=== PATIENT | male | born 1960 | race Caucasian/White ===

== ENCOUNTER 2020-06-09 19:19 | Observation (INO) ==
--- NOTE | 2020-06-09 20:38 | XRay Report ---
XR chest 1V portable CLINICAL HISTORY: Atypical chest pain COMPARISON STUDY: 06/03/2020 FINDINGS: The cardiac and mediastinal contours are normal. There is no evidence of focal pulmonary co nsolidation. There is no evidence of failure. No pleural effusions are visualized.[ IMPRESSION: No active disease in the chest. ACT 112: Negative or not required by law. Electronically signed by: Kole Vicente M.D. 06/09/2020 8:37 PM
--- NOTE | 2020-06-09 20:55 | Emergency Department Note ---
Impression & Plan Chest pain, Elevated troponin I level ED Provider Note NAME: MIRIAN JAMISON AGE: 59 SEX: M : 1960 ARRIVES VIA: Walk-In INFORMANT: Patient, ED PROVIDER(S): Jose Angel Jacobo DO CHIEF COMPLAINT: Chest pain HPI: The patient is a 59-year-old male who presented to the emergency department for an evaluation of chest pain. The patient describes left-sided anterior chest pain that goes to the right side which had been ongoing for the last 2 weeks. The patient has had intermittent episodes where the pain is worse but he states for at least the last 24 hours has had constant ongoing pain. He describes it anteriorly with radiation to the right and left shoulders. He also describes worsening pain with movement deep breathing as well as exertion. He was seen in our facility originally and followed up with cardiology. Cardiology evaluated the patient and feels that this could be related to GI upset and he was started on a proton pump inhibitor. Symptoms are not improving and seem to be worsening. He called his family doctor and was referred to the emergency department. ROS: See above HPI for pertinent positives & negatives. A total of 10 systems reviewed and were otherwise negative. PAST MEDICAL HISTORY: See Below PAST SURGICAL HISTORY: See Below FAMILY HISTORY: See Below SOCIAL HISTORY: See Below HOME MEDICATIONS: See Below ALLERGIES: See Below VITALS: See Below PHYSICAL EXAMINATION: GENERAL: Patient is awake alert in no acute distress patient is resting comfortably and showing no signs of anxiety EYES: The conjunctivae are clear. The pupils are round and reactive. EARS, NOSE, MOUTH AND THROAT: The nose is without any evidence of any deformity. NECK: The neck is nontender and supple. RESPIRATORY: Normal respiratory effort is noted there is no evidence of wheezing rhonchi or rales CARDIOVASCULAR: Regular rate and rhythm noted there no murmurs rubs or gallops normal S1 normal S2. GASTROINTESTINAL: The abdomen is soft. Abdomen is nontender. MUSCULOSKELETAL/EXTREMITIES: There is no evidence of gross deformity full range of motion is noted in the hips and shoulders. SKIN: There is no obvious evidence of any rash. There are no petechiae, pallor or cyanosis noted. NEUROLOGIC: Patient is awake alert and oriented x3. MEDICAL DECISION MAKING: The patient is a 59-year-old male who presented to the emergency department for an evaluation of chest pain. The patient does have risk factors for coronary artery disease including diabetes and hypertension. The patient's initial EKG showed no significant change compared to previous but did show some nonspecific ST segment abnormalities. The patient was seen previously with similar complaints. At that time he was following up with cardiology. On follow-up with cardiology they did not feel that his pain was cardiac in nature. The patient started having worsening pain and presented to the emergency department with his significant other for reevaluation. The patient was found to have an EKG that looks similar to previous but did have a mild elevation in his troponi n. He was treated with aspirin and pain medication. On subsequent reevaluation he was feeling much better. Given the patient's findings and comorbidities I [facility] have agreed to evaluate the patient in the emergency department for further management and disposition. Triage Nursing notes reviewed. Prior medical records reviewed Vital Signs: reviewed and remarkable for no significant abnormalities Differential diagnosis: Cardiac ischemia, aortic dissection, pulmonary embolism, pneumothorax, pneumonia, pericarditis, myocarditis, esophageal rupture, GERD, cholecystitis, pancreatitis, musculoskeletal, as well as other pathologies. ER treatment provided: See below Diagnostics interpreted by me: ECG: EKG was obtained in the emergency department. My interpretation is normal sinus rhythm at 82 bpm. There is no ectopy. Inferior Q waves were noted. This was compared to a tracing from June 032019. No significant changes were noted. Cardiac Monitoring: An order was placed for continuous cardiac monitoring. The monitor shows a rate of 75 bpm with sinus rhythm. Laboratory studies: As stated above and show below. Imaging studies: See below Consultation(s): I discussed this case with Dr. Delvalle who is [facility]. Past Med/Surg History Medical History (Updated 06/09/20 @ 23:38 by Jose Angel Jacobo DO) Diabetes Social History Smoking Status: Former smoker Preferred Language: Trinidadian Feels Safe at Home: Yes Allergies Allergies Allergy/AdvReac Type Severity Reaction Status Date / Time codeine Allergy Intermediate Nausea/Vomi Verified 06/08/20 14:27 ting Penicillins Allergy Intermediate Swelling Verified 06/08/20 14:27 Home Meds Home Medications Medication Instructions Recorded Confirmed atorvastatin 10 mg PO HS 08/10/19 06/09/20 ertugliflozin [Steglatro] 15 mg PO QAM 08/10/19 06/09/20 fluticasone propion-salmeterol 1 puff INHALATION Q12H 08/10/19 06/09/20 gabapentin 100 mg PO HS 08/10/19 06/09/20 liraglutide [Victoza 3-Santana] 1.8 mg SUBCUT DAILY 08/10/19 06/09/20 lisinopril-hydrochlorothiazide 1 tab PO DAILY 08/10/19 06/09/20 metformin 1,000 mg PO BID 08/10/19 06/09/20 modafinil 200 mg PO BID 08/10/19 06/09/20 potassium chloride [Klor-Con M20] 20 meq PO DAILY 08/10/19 06/09/20 Previous Rx's Medication Instructions Recorded lansoprazole 30 mg capsule,delayed 30 mg PO DAILY #30 cap 06/08/20 release Results & Data (ED) Vital Signs Vital Signs - 24 hr 06/09/20 19:29 06/09/20 20:35 06/09/20 21:15 Temperature 37.2 C Temperature Source Oral Pulse Rate 86 80 Pulse Rate from SpO2 Sensor 79 Respiratory Rate 20 18 Respiratory Effort / Characteristics Non-Labored Spontaneous Respiratory Depth Normal Blood Pressure 146/78 H 125/83 Blood Pressure Mean 100 105 Pulse Oximetry 94 94 Oxygen Delivery Method Room Air Room Air Sepsis New/Unexplained Change in Mental Status N/A Sepsis Action Taken by Nursing No Action Required 06/09/20 21:26 06/09/20 21:30 06/09/20 21:45 Temperature Temperature Source Pulse Rate 80 85 78 Pulse Rate from SpO2 Sensor 81 Respiratory Rate 15 17 13 Respiratory Effort / Characteristics Respiratory Depth Blood Pressure 139/82 127/75 Blood Pressure Mean 112 100 Pulse Oximetry 94 Oxygen Delivery Method Sepsis New/Unexplained Change in Mental Status Sepsis Action Taken by Nursing 06/09/20 22:00 06/09/20 22:15 06/09/20 22:30 Temperature Temperature Source Pulse Rate 79 81 76 Pulse Rate from SpO2 Sensor 82 76 Respiratory Rate 14 20 16 Respiratory Effort / Characteristics Respiratory Depth Blood Pressure 138/72 146/76 H 118/70 Blood Pressure Mean 97 98 93 Pulse Oximetry 95 94 Oxygen Delivery Method Sepsis New/Unexplained Change in Mental Status Sepsis Action Taken by Fdc Medications Current Medication List: was personally reviewed by mo Laboratory Data Attestation: I reviewed the patient's lab results. Result diagrams: 06/09/20 20:55 06/09/20 20:55 Lab Results 06/09/20 06/09/20 06/09/20 Range/Units 20:55 20:55 20:55 WBC 9.14 (4.8-10.8) K/uL RBC 5.27 (4.7-6.1) M/uL Hgb 15.1 (14.0-18.0) g/dL Hct 46.2 (42-52) % MCV 87.7 (80-100) fL MCH 28.7 (25-34) pg MCHC 32.7 (32-36) g/dL RDW Std Deviation 43.9 (36.4-46.3) fL RDW Coeff of Donna 13.7 (11.5-14.5) % Plt Count 201 (130-400) K/uL MPV 10.6 H (7.4-10.4) fL Immature Gran % (Auto) 0.2 % Neut % (Auto) 63.9 % Lymph % (Auto) 20.6 % Esmeralda % (Auto) 13.1 % Eos % (Auto) 2.0 % Baso % (Auto) 0.2 % Neut # (Auto) 5.84 (1.4-6.5) K/uL Lymph # (Auto) 1.88 (1.2-3.4) K/uL Esmeralda # (Auto) 1.20 H (0.11-0.59) K/uL Eos # (Auto) 0.18 (0-0.5) K/uL Baso # (Auto) 0.02 (0-0.2) K/uL Immature Gran # (Auto) 0.02 (0.00-0.02) K/uL PT 10.6 (9.0-12.0) Seconds INR 1.0 (0.9-1.1) APTT 26.0 (21.0-31.0) Seconds PTT Ratio 0.9 D-Dimer 230 (0-500) ug/L FEU Sodium 141 (136-145) mmol/L Potassium 3.9 (3.5-5.1) mmol/L Chloride 108 H (98-107) mmol/L Carbon Dioxide 26 (21-32) mmol/L Anion Gap 7.0 (3-11) BUN 18 (7-18) mg/dl Creatinine 0.93 (0.6-1.4) mg/dl Est Cr Clr Drug Dosing 97.5 ml/min Est GFR ( Amer) 103.8 Est GFR (Non-Af Amer) 89.5 BUN/Creatinine Ratio 18.8 (10-20) Glucose 142 H (70-99) mg/dl Calcium 9.2 (8.5-10.1) mg/dl Total Bilirubin 0.1 L (0.2-1) mg/dl AST 21 (15-37) U/L ALT 45 (12-78) U/L Alkaline Phosphatase 53 (45-117) U/L Troponin I 0.060 H* (0-0.045) ng/ml Total Protein 7.2 (6.4-8.2) gm/dl Albumin 3.8 (3.4-5.0) gm/dl Globulin 3.4 (2.5-4.0) gm/dl Albumin/Globulin Ratio 1.1 (0.9-2) Lipase 254 (73-393) U/L Administered Medications Fentanyl Citrate (Fentanyl Citrate 100 Mcg/2 Ml Vial) 50 mcg IV Q15M PRN PRN Reason: Pain Stop: 06/23/20 20:57 Last Admin: 06/09/20 21:28 Dose: 50 mcg Documented by: [id number] Nitroglycerin (Nitroglycerin 2% Ointment 30gm Tube) 1 inch EXT Q6H [facility] Stop: 07/10/20 00:00 Last Admin: 06/09/20 23:14 Dose: 1 inch Documented by: [id number] Discontinued Medications Aspirin (Aspirin Chew 324 Mg) 324 mg PO NOW STA Stop: 06/09/20 20:59 Last Admin: 06/09/20 21:26 Dose: 324 mg Documented by: [id number] Nitroglycerin (Nitroglycerin 2% Ointment 30gm Tube) Confirm Administered Dose 18 inch .ROUTE .STK-MED ONE Stop: 06/09/20 23:14 Last Admin: 06/09/20 23:14 Dose: Not Given Documented by: [id number] Ondansetron HCl (Ondansetron Inj 2 Mg/Ml 2 Ml Vial) 4 mg IV NOW STA Stop: 06/09/20 20:59 Last Admin: 06/09/20 21:26 Dose: 4 mg Documented by: [id number] Imaging Data Radiologist's Impression: Patient: MIRIAN JAMISON EAdmit Date: 06/09/20#: [id number]: [id number] ID:[id number]: Date: 1960[facility] Zip: [place] [id number]: 59Location: EDSex: MRoom/Bed:Att Phy:Diagnosis: chest painPri Phy: Juan Mei III., CRNPService Date: 06/09/20Fa Phy:Interpreting Phy: Kole Vicente MDAdmit Phy: Ordering Phy: Jose Angel Jacobo DO cc: ~ XR chest 1V portable CLINICAL HISTORY: Atypical chest pain COMPARISON STUDY: 06/03/2020 FINDINGS: The cardiac and mediastinal contours are normal. There is no evidence of focal pulmonary consolidation. There is no evidence of failure. No pleural effusions are visualized.[ IMPRESSION: No active disease in the chest. ACT 112: Negative or not required by law. Electronically signed by: Kole Vicente M.D. 06/09/2020 8:37 PM Dictated: 06/09/202036Transcribed: 06/09/202036 Blood Pressure Blood Pressure Findings: Normal blood pressure Discharge Plan Visit Data Chief Complaint: Chest Pain Stated Complaint: chest pain ED Provider: Jose Angel Jacobo Discharge Problem: Chest pain, Elevated troponin I level Patient Disposition: Being Evaluated by Hospitalist Condition: Good Forms Stand Alone Forms: My [facility] Prescriptions Prescriptions: No Action lansoprazole 30 mg capsule,delayed release(DR/EC) 30 mg PO DAILY Qty: 30 RF: 2 atorvastatin 10 mg tablet 10 mg PO HS RF: 0 potassium chloride [Klor-Con M20] 20 mEq tablet,ER particles/crystals 20 meq PO DAILY RF: 0 modafinil 200 mg tablet 200 mg PO BID RF: 0 gabapentin 100 mg capsule 100 mg PO HS RF: 0 lisinopril-hydrochlorothiazide 10-12.5 mg tablet 1 tab PO DAILY RF: 0 metformin 500 mg tablet extended release 24 hr 1,000 mg PO BID RF: 0 Victoza 3-Santana 0.6 mg/0.1 mL (18 mg/3 mL) pen injector 1.8 mg SUBCUT DAILY RF: 0 fluticasone propion-salmeterol 113-14 mcg/actuation aerosol powdr breath activated 1 puff INHALATION Q12H RF: 0 Steglatro 15 mg tablet 15 mg PO QAM RF: 0 Referrals Referrals: Juan Mei III, CRNP [Primary Care Provider] -
[2020-06-09] MEDS ORDERED: ASPIRIN CHEW 324 MG PO STA (20:58)
[2020-06-09] MEDS ORDERED: fentaNYL citrate 100 MCG/2 ML VIAL IV PRN (20:58)
[2020-06-09] MEDS ORDERED: ONDANSETRON INJ 2 MG/ML 2 ML VIAL IV STA (20:58)
[2020-06-09 21:10] LABS: Basophils # (auto) 0.02 K/uL (0-0.2); Basophils % (auto) 0.2 %; Eosinophils # (auto) 0.18 K/uL (0-0.5); Hematocrit (blood only) 46.2 % (42-52); Hemoglobin 15.1 g/dL (14.0-18.0); Immature Granulocytes # (auto) 0.02 K/uL (0.00-0.02); Immature Granulocytes % (auto) 0.2 %; Lymphocytes # (auto) 1.88 K/uL (1.2-3.4); Lymphocytes % (auto) 20.6 %; Mean Corpuscular Hemoglobin 28.7 pg (25-34); Mean Corpuscular Hgb Conc 32.7 g/dL (32-36); Mean Corpuscular Volume 87.7 fL (80-100); Mean Platelet Volume 10.6 fL (7.4-10.4); Monocytes % (auto) 13.1 %; Neutrophils # (auto) 5.84 K/uL (1.4-6.5); Neutrophils % (auto) 63.9 %; Platelet Count 201 K/uL (130-400); RDW Coefficient of Variation 13.7 % (11.5-14.5); RDW Standard Deviation 43.9 fL (36.4-46.3); Red Blood Count 5.27 M/uL (4.7-6.1); White Blood Count 9.14 K/uL (4.8-10.8)
[2020-06-09 21:27] LABS: Albumin Level 3.8 gm/dl (3.4-5.0); BUN Creatinine Ratio 18.8 (10-20); Calcium 9.2 mg/dl (8.5-10.1); Creatinine Clr Calc Pharmacy 97.5 ml/min; Est GFR (African American) 103.8; Est GFR (Non-African American) 89.5; Potassium 3.9 mmol/L (3.5-5.1)
[2020-06-09 21:31] LABS: D Dimer 230 ug/L FEU (0-500); Partial Thromboplastin Ratio 0.9; Prothrombin Time 10.6 Seconds (9.0-12.0)
[2020-06-09 21:41] LABS: Albumin Globulin Ratio 1.1 (0.9-2); Bilirubin,Total 0.1 mg/dl (0.2-1); Globulin 3.4 gm/dl (2.5-4.0); Total Protein 7.2 gm/dl (6.4-8.2); Troponin I 0.06 ng/ml (0-0.045)
[2020-06-09] MEDS ORDERED: NITROGLYCERIN 2% OINTMENT 30GM TUBE ONE (23:13)
[2020-06-09] MEDS: NITROGLYCERIN 2% OINTMENT 30GM TUBE EXT SCH (23:14)
[2020-06-10] MEDS ORDERED: GLUCAGON FOR INJ 1 MG VIAL SQ PRN (00:29)
[2020-06-10] MEDS ORDERED: GLUCOSE 10 TABS/TUBE PO PRN (00:29)
[2020-06-10] MEDS ORDERED: GLUCOSE 40% GEL 15 GM TUBE PO PRN (00:29)
[2020-06-10] MEDS ORDERED: DEXTROSE 50% 50 ML SYRINGE IV PRN (00:29)
[2020-06-10] MEDS ORDERED: NITROGLYCERIN SL 0.4 MG/TAB TAB SL PRN (00:29)
[2020-06-10] MEDS ORDERED: NSS + 20MEQ KCL 20 MEQ/1,000 ML BAG IV SCH (00:29)
[2020-06-10] MEDS ORDERED: ONDANSETRON INJ 2 MG/ML 2 ML VIAL IV PRN (00:29)
[2020-06-10] MEDS ORDERED: CARBOHYDRATES FOR HYPOGLYCEMIA PO PRN (00:29)
[2020-06-10] MEDS ORDERED: INFLUENZA ADMINISTRATION CHARGE ONE (00:42)
[2020-06-10] MEDS ORDERED: INFLUENZA VIRUS QUAD VACCINE 0.5 ML SYR IM ONE (00:42)
[2020-06-10] MEDS: ACETAMINOPHEN 325 MG TAB PO PRN ×2 (04:50→15:23)
[2020-06-10] MEDS ORDERED: fentaNYL citrate 100 MCG/2 ML VIAL IV PRN (05:10)
[2020-06-10] MEDS ORDERED: fentaNYL citrate 100 MCG/2 ML VIAL ONE ×2 (05:15→13:06)
[2020-06-10] MEDS: NITROGLYCERIN 2% OINTMENT 30GM TUBE EXT SCH ×2 (05:23→11:20)
--- NOTE | 2020-06-10 05:49 | History & Physical Report ---
Date of Service June 10, 2020 Assessment & Plan (1) Non-STEMI (non-ST elevated myocardial infarction): Non-STEMI/elevated troponin I/CAD/hypertension- The patient will be admitted to telemetry for serial cardiac enzymes, serial EKG's, cardiac rhythm monitoring and a 2-D echocardiogram with Dopplers. Place on aspirin 81 mg daily Nitropaste 1 inch to the anterior chest wall every 6 hours Continue lisinopril/HCTZ 10/12.5 daily Continue potassium chloride 20 mEq daily Consult his fire lieutenant Dr. Son Present on Admission?: Yes (2) CAD (coronary artery disease), teller coronary artery: EKG with old inferior wall IN Present on Admission?: Yes (3) Hypertension: See above Present on Admission?: Yes (4) Elevated troponin I level: Troponin 0.06 upon admission Present on Admission?: Yes (5) Diabetes mellitus: Hold Metformin, ertugliflozin and liraglutide. Placed on Accu-Cheks before meals and at bedtime with NovoLog coverage per scale Present on Admission?: Yes (6) Hyperlipidemia LDL goal <70: Increase atorvastatin from 10 to 40 mg at bedtime. Check a fasting lipid panel Present on Admission?: Yes (7) Excessive daytime sleepiness: Hold modafinil Present on Admission?: Yes (8) GERD (gastroesophageal reflux disease): Continue lansoprazole 30 mg daily or pantoprazole 40 mg daily Present on Admission?: Yes (9) COPD (chronic obstructive pulmonary disease): Continue fluticasone propionate/salmeterol 1 elation every 12 hours. Present on Admission?: Yes Admission and Anticipated Discharge Date Admission Date: June 09, 2020 History of Present Illness Chief Complaint: The patient presents to the emergency department with worsening substernal chest pain and shortness of breath. Primary Care Provider: Juan Mei III, CHARITO The patient is 59-year-old male with a past medical history including hypertension, hyperlipidemia, diabetes mellitus, COPD, GERD, and daytime excessive sleepiness and fatigue. He was recently started on Prilosec in the outpatient setting for presumptive GERD, however, his symptoms were that significant that he presented to the ED for assessment tonight. In the emergency department, work-up included the following: Troponin 0 0.06, glucose 142, normal chest x-ray, EKG with normal sinus rhythm at 80 and old inferior wall IN. In the emergency department, the patient received aspirin 324 mg, Zo cleo 4 mg IV and fentanyl 50 mcg IV. Allergies Allergy/AdvReac Type Severity Reaction Status Date / Time codeine Allergy Intermediate Nausea/Vomi Verified 06/08/20 14:27 ting Penicillins Allergy Intermediate Swelling Verified 06/08/20 14:27 Home Medications Home Medications Medication Instructions Recorded Confirmed Type atorvastatin 10 mg PO HS 08/10/19 06/09/20 History ertugliflozin [Steglatro] 15 mg PO QAM 08/10/19 06/09/20 History fluticasone propion-salmeterol 1 puff INHALATION Q12H 08/10/19 06/09/20 History gabapentin 100 mg PO HS 08/10/19 06/09/20 History liraglutide [Victoza 3-Santana] 1.8 mg SUBCUT DAILY 08/10/19 06/09/20 History lisinopril-hydrochlorothiazide 1 tab PO DAILY 08/10/19 06/09/20 History metformin 1,000 mg PO BID 08/10/19 06/09/20 History modafinil 200 mg PO BID 08/10/19 06/09/20 History potassium chloride [Klor-Con M20] 20 meq PO DAILY 08/10/19 06/09/20 History lansoprazole 30 mg capsule,delayed 30 mg PO DAILY #30 cap 06/08/20 06/09/20 Rx release Past Med/Surg History Medical History (Updated 06/10/20 @ 05:44 by Lalit Simpson MD) CAD (coronary artery disease), teller coronary artery COPD (chronic obstructive pulmonary disease) Diabetes mellitus Excessive daytime sleepiness GERD (gastroesophageal reflux disease) Hyperlipidemia LDL goal <70 Hypertension Social History Smoking Status: Former smoker Smoking End Date: 2006; Second Hand Exposure: No; Do You Dip or Chew Tobacco: No; Tobacco Cessation Education Requested by Patient: No Hx Alcohol Use: Yes Alcohol type: beer Hx Substance Use: No Preferred Language: Slovak Communication Ability: Effective Polisher And Sander Required: No Beliefs That Will Affect Care: None Current Living Situation: Spouse Other Information That Helps Us Care for You: No Feels Safe at Home: Yes Safety Concerns: Feels Safe At This Time Assistive Devices: CPAP, Denture - Upper, Denture - Lower, Glasses and Hearing Aid - Bilateral Review of Systems Review of Systems: The patient denies palpitations, cough, lower extremity swelling, sore throat, fevers, chills, sweats, nausea, vomiting, diarrhea , constipation, abdominal pain, pelvic pain, blood in urine or stool, dysuria, urinary frequency or urgency, lightheadedness, dizziness, headache, memory loss, loss of consciousness, rash, abnormal bruising or bleeding, imbalance, focal or generalized weakness, numbness or tingling in arms or legs, generalized arthralgias or myalgias, back or neck pain, or night sweats. The review of systems is otherwise negative other than for that already noted above, and at least 10 systems have been reviewed. Physical Exam Physical Exam: The patient is awake, alert and oriented 3, well developed and well nourished, normocephalic and atraumatic, lying in bed and in no acute distress. HEENT--PERRL, EOMI, mucous membranes and oropharynx normal. Neck--supple. No JVD. No bruits. Thyroid normal, trachea midline, no adenopathy. Heart--normal S1 and S2. No murmurs, rubs or gallops. Lungs--clear bilaterally, no respiratory distress, no accessory muscle use. Abdomen--normal bowel sounds and soft. Nontender. Nondistended. Mildly obese Extremities--no cyanosis or clubbing. No edema. Dermatologic--normal skin turgor, normal color, no abnormal lymph nodes, no rash. Neurologic--cranial nerves II through XII grossly intact. Rheumatologic--normal range of motion. Psychiatric--normal affect. Results & Data Results & Data ([facility]) Vital Signs (Past 12 Hours) Vital Signs Temp Pulse Pulse Resp BP BP Pulse Ox 06/10/20 04:12 97.9 F 66 18 120/63 94 06/10/20 00:20 98.4 F 75 16 143/74 H 95 06/10/20 00:00 72 17 132/75 91 06/09/20 23:45 75 19 131/67 95 06/09/20 23:30 74 17 127/69 95 06/09/20 23:15 79 17 132/76 94 06/09/20 23:00 75 21 130/69 94 11/10/20 22:45 76 20 141/72 H 95 06/09/20 22:30 76 16 118/70 94 06/09/20 22:15 81 20 146/76 H 95 06/09/20 22:00 79 14 138/72 06/09/20 21:45 78 13 127/75 06/09/20 21:30 85 17 139/82 06/09/20 21:26 80 15 94 06/09/20 21:15 80 18 125/83 94 06/09/20 19:29 99.0 F 86 20 146/78 H 94 Laboratory Results Laboratory Results WBC 9.14 K/uL (4.8-10.8) 06/09/20 20:55 RBC 5.27 M/uL (4.7-6.1) 06/09/20 20:55 Hgb 15.1 g/dL (14.0-18.0) 06/09/20 20:55 Hct 46.2 % (42-52) 06/09/20 20:55 MCV 87.7 fL (80-100) 06/09/20 20:55 MCH 28.7 pg (25-34) 06/09/20 20:55 MCHC 32.7 g/dL (32-36) 06/09/20 20:55 RDW Std Deviation 43.9 fL (36.4-46.3) 06/09/20 20:55 RDW Coeff of Donna 13.7 % (11.5-14.5) 06/09/20 20:55 Plt Count 201 K/uL (130-400) 06/09/20 20:55 MPV 10.6 fL (7.4-10.4) H 06/09/20 20:55 Immature Gran % (Auto) 0.2 % 06/09/20 20:55 Neut % (Auto) 63.9 % 06/09/20 20:55 Lymph % (Auto) 20.6 % 06/09/20 20:55 [place] % (Auto) 13.1 % 06/09/20 20:55 Eos % (Auto) 2.0 % 06/09/20 20:55 Baso % (Auto) 0.2 % 06/09/20 20:55 Neut # (Auto) 5.84 K/uL (1.4-6.5) 06/09/20 20:55 Lymph # (Auto) 1.88 K/uL (1.2-3.4) 06/09/20 20:55 [place] # (Auto) 1.20 K/uL (0.11-0.59) H 06/09/20 20:55 Eos # (Auto) 0.18 K/uL (0-0.5) 06/09/20 20:55 Baso # (Auto) 0.02 K/uL (0-0.2) 06/09/20 20:55 Immature Gran # (Auto) 0.02 K/uL (0.00-0.02) 06/09/20 20:55 PT 10.6 Seconds (9.0-12.0) 06/09/20 20:55 INR 1.0 (0.9-1.1) 06/09/20 20:55 APTT 26.0 Seconds (21.0-31.0) 06/09/20 20:55 PTT Ratio 0.9 06/09/20 20:55 D-Dimer 230 ug/L FEU (0-500) 06/09/20 20:55 Sodium 141 mmol/L (136-145) 06/09/20 20:55 Potassium 3.9 mmol/L (3.5-5.1) 06/09/20 20:55 Chloride 108 mmol/L (98-107) H 06/09/20 20:55 Carbon Dioxide 26 mmol/L (21-32) 06/09/20 20:55 Anion Gap 7.0 (3-11) 06/09/20 20:55 BUN 18 mg/dl (7-18) 06/09/20 20:55 Creatinine 0.93 mg/dl (0.6-1.4) 06/09/20 20:55 Est Cr Clr Drug Dosing 97.5 ml/min 06/09/20 20:55 Est GFR ( Amer) 103.8 06/09/20 20:55 Est GFR (Non-Af Amer) 89.5 06/09/20 20:55 BUN/Creatinine Ratio 18.8 (10-20) 06/09/20 20:55 Glucose 142 mg/dl (70-99) H 06/09/20 20:55 Calcium 9.2 mg/dl (8.5-10.1) 06/09/20 20:55 Total Bilirubin 0.1 mg/dl (0.2-1) L 06/09/20 20:55 AST 21 U/L (15-37) 06/09/20 20:55 ALT 45 U/L (12-78) 06/09/20 20:55 Alkaline Phosphatase 53 U/L (45-117) 06/09/20 20:55 Troponin I 0.045 ng/ml (0-0.045) 06/10/20 00:07 Total Protein 7.2 gm/dl (6.4-8.2) 06/09/20 20:55 Albumin 3.8 gm/dl (3.4-5.0) 06/09/20 20:55 Globulin 3.4 gm/dl (2.5-4.0) 06/09/20 20:55 Albumin/Globulin Ratio 1.1 (0.9-2) 06/09/20 20:55 Lipase 254 U/L (73-393) 06/09/20 20:55 Diagnostic Findings [facility], [id number] XRay Report Patient: MIRIAN JAMISON EAdmit Date: 06/09/20MR#: [id number][id number]:[id number]: Date: [address] [place] [address] Zip: [place] [address]Nhy: [birth year]Location: EDSex: MRoom/Bed:Att Phy:Diagnosis: chest painPri Phy: Juan Mei III., CRNPService Date: 06/09/20Fa Phy:Interpret ing Phy: Kole Vicente [facility] Phy: Ordering Phy: Jose Angel Jacobo DO cc: ~ XR chest 1V portable CLINICAL HISTORY: Atypical chest pain COMPARISON STUDY: 06/03/2020 FINDINGS: The cardiac and mediastinal contours are normal. There is no evidence of focal pulmonary consolidation. There is no evidence of failure. No pleural effusions are visualized.[ IMPRESSION: No active disease in the chest. ACT 112: Negative or not required by law. Electronically signed by: Kole Vicente M.D. 06/09/2020 8:37 PM Dictated: 06/09/202036Transcribed: 06/09/202036 Code Status & VTE Plan Code Status Full code VTE Prophylaxis Plan VTE Prophylaxis will be ordered: Yes PG Care Time/CCT Total # of Minutes Spent Total Time Spent with Patient: Total time spent is greater than 50% in coordination of care (as documented) at patient's floor/unit and/or counseling patient: Coding Level of Care Code 21556 Initial Inpt Care Lvl 3 Diagnoses Non-STEMI (non-ST elevated myocardial infarction) I21.4 CAD (coronary artery disease), teller coronary artery I25.10 Hypertension I10 Elevated troponin I level R77.8 Diabetes mellitus E11.9 Hyperlipidemia LDL goal <70 E78.5 Excessive daytime sleepiness G47.19 GERD (gastroesophageal reflux disease) K21.9 COPD (chronic obstructive pulmonary disease) J44.9
[2020-06-10 07:43] LABS: Basophils # (auto) 0.02 K/uL (0-0.2); Basophils % (auto) 0.3 %; Eosinophils # (auto) 0.17 K/uL (0-0.5); Eosinophils % (auto) 2.5 %; Hematocrit (blood only) 44.3 % (42-52); Hemoglobin 14.2 g/dL (14.0-18.0); Immature Granulocytes # (auto) 0.02 K/uL (0.00-0.02); Immature Granulocytes % (auto) 0.3 %; Lymphocytes # (auto) 1.42 K/uL (1.2-3.4); Lymphocytes % (auto) 21.1 %; Mean Corpuscular Hemoglobin 28.2 pg (25-34); Mean Corpuscular Hgb Conc 32.1 g/dL (32-36); Mean Corpuscular Volume 88.1 fL (80-100); Mean Platelet Volume 10.7 fL (7.4-10.4); Monocytes # (auto) 0.71 K/uL (0.11-0.59); Monocytes % (auto) 10.5 %; Neutrophils # (auto) 4.39 K/uL (1.4-6.5); Neutrophils % (auto) 65.3 %; Platelet Count 180 K/uL (130-400); RDW Coefficient of Variation 13.8 % (11.5-14.5); RDW Standard Deviation 44.6 fL (36.4-46.3); Red Blood Count 5.03 M/uL (4.7-6.1); White Blood Count 6.73 K/uL (4.8-10.8)
[2020-06-10 07:48] LABS: Partial Thromboplastin Ratio 0.9; Prothrombin Time 10.6 Seconds (9.0-12.0)
[2020-06-10] MEDS: INSULIN ASPART 100 UNITS/ML 3 ML PEN SC SCH ×3 (07:56→16:57)
[2020-06-10 08:09] LABS: Albumin Level 3.5 gm/dl (3.4-5.0); BUN Creatinine Ratio 25.9 (10-20); Calcium 8.8 mg/dl (8.5-10.1); Creatinine Clr Calc Pharmacy 139.2 ml/min; Est GFR (African American) 123.4; Est GFR (Non-African American) 106.5; Magnesium 1.9 mg/dl (1.8-2.4); Potassium 3.9 mmol/L (3.5-5.1)
[2020-06-10 08:14] LABS: Albumin Globulin Ratio 1.1 (0.9-2); Bilirubin,Total 0.3 mg/dl (0.2-1); Globulin 3.2 gm/dl (2.5-4.0); Total Protein 6.7 gm/dl (6.4-8.2); Troponin I 0.025 ng/ml (0-0.045)
--- NOTE | 2020-06-10 08:49 | XCELERA ---
[id number]
[2020-06-10] MEDS ORDERED: PANTOprazole 40 MG TAB PO SCH (09:00)
[2020-06-10] MEDS ORDERED: LISINOPRIL/HCTZ 10/12.5MG TAB PO SCH (09:00)
[2020-06-10] MEDS ORDERED: POTASSIUM CHLORIDE CRTAB 20 MEQ TABCR PO SCH (09:00)
[2020-06-10] MEDS ORDERED: FLUTICASONE FUROATE 100MCG 14 PUFFS/INHALER INH SCH (09:00)
[2020-06-10] MEDS ORDERED: modafiniL 100 MG TAB PO SCH (09:00)
[2020-06-10 09:10] LABS: Estimated Average Glucose 146 mg/dl; Hemoglobin A1C 6.7 % (4.5-5.6)
--- NOTE | 2020-06-10 10:50 | Pre Anesthesia Assessment ---
Date of Service June 10, 2020 Pre Sedation Assessment Vital Signs Temp Pulse Pulse Resp BP BP Pulse Ox 06/10/20 07:27 97.7 F 67 16 134/83 94 06/10/20 04:12 97.9 F 66 18 120/63 94 06/10/20 00:20 98.4 F 75 16 143/74 H 95 06/10/20 00:00 72 17 132/75 91 06/09/20 23:45 75 19 131/67 95 06/09/20 23:30 74 17 127/69 95 06/09/20 23:15 79 17 132/76 94 06/09/20 23:00 75 21 130/69 94 06/09/20 22:45 76 20 141/72 H 95 06/09/20 22:30 76 16 118/70 94 06/09/20 22:15 81 20 146/76 H 95 06/09/20 22:00 79 14 138/72 06/09/20 21:45 78 13 127/75 06/09/20 21:30 85 17 139/82 06/09/20 21:26 80 15 94 06/09/20 21:15 80 18 125/83 94 06/09/20 19:29 99.0 F 86 20 146/78 H 94 Cardiovascular RRR, no murmur, no edema Respiratory normal respiratory effort, lungs clear to auscultation Pre-Sedation Airway Assessment Smoking Status: Former smoker Hx Sleep Apnea: No Hx Difficult Intubation: No Short, Thick Neck: No Thyromental Distance: > or= 3.5 Finger Breadths Oral Cavity: + WNL Mallampati Class: III ASA: ASA3 Procedure Planning Contraindications for Sedation: none Current Medications Reviewed: Yes Notes The planned sedation has been discussed with the patient. Informed Consent was obtained. I have identified the patient, determined the appropriateness of sedation and have assessed the patient immediately prior to the procedure. All medicine(s) and interventions are by my order.
--- NOTE | 2020-06-10 10:50 | Cardiology Consultation ---
Date of Consultation June 10, 2020 Assessment & Plan (1) Chest pain: 2. Minimally elevated troponin 3. Type 2 diabetes 4. Hypertension 5. Family history of CAD 6. Prior tobacco abuse Patient here with chest pain for more than a week. Description of symptoms atypical and with near constant pain troponin/ECG/echo unimpressive. Symptoms seem more consistent with musculoskeletal versus pleurisy. However, patient has significant cardiac risk factors and with minimal troponin rise/fall suspicion for ACS elevated. Recommend additional stratification. Discussed options and will plan to proceed with cardiac catheterization. Plan to perform procedure later this afternoon via right radial artery. Keep n.p.o., Covid pending. History of Present Illness Attending Physician: Roman Christian DO History of Present Illness Mr. Grullon is a 59-year-old man seen today in the setting of persistent chest pain and minimally elevated troponin. Past medical history remarkable for type 2 diabetes on GLP1/SGLT2, hypertension, COPD. Patient reports persistent left-sided chest pain for the better part of the last week. Pain worsened with movement, coughing. No real change with exertion although has been mostly sedentary due to pain. Reports some questionable flulike symptoms 1 to 2 weeks ago for which was treated with antibiotics. For chest pain has been seen in urgent care and in the [facility] ED on 06/03. At that time ECG, troponins unremarkable. Was seen by Dr. Son on 06/08 as an outpatient. Pain thought to be musculoskeletal versus GI and started on PPI. Since that time has continued to have chest pain. Yesterday noted new pain radiating down his left arm. Has not had similar pain in the past. Reports a remote stress test in [place] years ago which reportedly showed evidence of a blockage. No other significant cardiac history. On presentation minimally hypertensive, troponin minimally elevated at 0.06 and a since trended down. ECG showed sinus rhythm with unchanged questionable old inferior infarct and no dynamic ST changes. No arrhythmia on telemetry. Echocardiogram showed preserved function with no wall motion abnormalities. Nitropatch placed on admission. No change in chest pain, stents removed in the setting of headache. Social history: Quit smoking 13 years ago. 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 Family history: Father reportedly had multiple heart issues, questionable MD, from prostate cancer in his 60s. Allergies Allergy/AdvReac Type Severity Reaction Status Date / Time codeine Allergy Intermediate Nausea/Vomi Verified 06/08/20 14:27 ting Penicillins Allergy Intermediate Swelling Verified 06/08/20 14:27 Home Medications Home Medications Medication Instructions Recorded Confirmed Type atorvastatin 10 mg PO HS 08/10/19 06/09/20 History ertugliflozin [Steglatro] 15 mg PO QAM 08/10/19 06/09/20 History fluticasone propion-salmeterol 1 puff INHALATION Q12H 08/10/19 06/09/20 History gabapentin 100 mg PO HS 08/10/19 06/09/20 History liraglutide [Victoza 3-Santana] 1.8 mg SUBCUT DAILY 08/10/19 06/09/20 History lisinopril-hydrochlorothiazide 1 tab PO DAILY 08/10/19 06/09/20 History metformin 1,000 mg PO BID 08/10/19 06/09/20 History modafinil 200 mg PO BID 08/10/19 06/09/20 History potassium chloride [Klor-Con M20] 20 meq PO DAILY 08/10/19 06/09/20 History lansoprazole 30 mg capsule,delayed 30 mg PO DAILY #30 cap 06/08/20 06/09/20 Rx release Patient History Medical History (Updated 06/10/20 @ 05:44 by Lalit Simpson MD) CAD (coronary artery disease), [place] coronary artery COPD (chronic obstructive pulmonary disease) Diabetes mellitus Excessive daytime sleepiness GERD (gastroesophageal reflux disease) Hyperlipidemia LDL goal <70 Hypertension Social History Smoking Status: Former smoker Smoking End Date: 2006; Second Hand Exposure: No; Do You Dip or Chew Tobacco: No; Tobacco Cessation Education Requested by Patient: No Hx Alcohol Use: Yes Alcohol type: beer Hx Substance Use: No Preferred Language: Bruneian Communication Ability: Effective Employment Assistant Required: No Beliefs That Will Affect Care: None Current Living Situation: Spouse Other Information That Helps Us Care for You: No Feels Safe at Home: Yes Safety Concerns: Feels Safe At This Time Assistive Devices: None Review of Systems Review of Systems: All systems reviewed & are unremarkable except as noted in HPI & below Physical Exam Physical Exam: General: Uncomfortable, no acute distress Eyes: Sclerae anicteric, extraocular movements intact HENT: Oropharynx clear mucous membranes moist Neck: Normal carotid upstrokes, no bruits. No JVD. Lungs: Clear to auscultation bilaterally, upper airway wheezing Cardiac: Regular rate and rhythm, no murmurs Vascular: 2+ radial, DP and PT pulses. Abdomen: Soft, nontender, nondistended, positive bowel sounds. Extremities: Well perfused, no peripheral edema Skin: No rashes or lesions. Neuro: Nonfocal Psych: Alert orient x3, normal affect and mood Results & Data ([facility]) Vital Signs (Past 12 Hours) Vital Signs Temp Pulse Pulse Resp BP BP Pulse Ox 06/10/20 07:27 97.7 F 67 16 134/83 94 06/10/20 04:12 97.9 F 66 18 120/63 94 06/10/20 00:20 98.4 F 75 16 143/74 H 95 06/10/20 00:00 72 17 132/75 91 06/09/20 23:45 75 19 131/67 95 06/09/20 23:30 74 17 127/69 95 06/09/20 23:15 79 17 132/76 94 06/09/20 23:00 75 21 130/69 94 06/09/20 22:45 76 20 141/72 H 95 PG Care Time/CCT Total # of Minutes Spent Total Time Spent with Patient: Total time spent is greater than 50% in coordination of care (as documented) at patient's floor/unit and/or counseling patient: Coding Level of Care Code 09343 Inpt Consult Level 4 Diagnoses Chest pain R07.9 Chest pain type: unspecified (1) Chest pain Chest pain type: unspecified Qualified Code(s): R07.9 - Chest pain, unspecified
[2020-06-10] MEDS ORDERED: HEPARIN (PORCINE) 1000 UNIT/ML 10 ML (CATH LAB USE ONLY) ONE (13:06)
[2020-06-10] MEDS ORDERED: NITROGLYCERIN/D5W 100MCG/ML 20ML SYR ONE (13:06)
[2020-06-10] MEDS ORDERED: niCARdipine HCL INJ 2.5 MG/ML 10 ML AMP ONE (13:06)
[2020-06-10] MEDS ORDERED: MIDAZOLAM HCL 1 MG/ML 2ML VIAL ONE (13:06)
--- NOTE | 2020-06-10 14:00 | Post Anesthesia Assessment ---
Date of Service June 10, 2020 Post Sedation Assessment Vital Signs Temp Pulse Pulse Resp BP BP Pulse Ox 06/10/20 13:50 74 16 144/78 H 92 06/10/20 11:08 97.9 F 76 20 157/79 H 95 06/10/20 07:27 97.7 F 67 16 134/83 94 06/10/20 04:12 97.9 F 66 18 120/63 94 06/10/20 00:20 98.4 F 75 16 143/74 H 95 06/10/20 00:00 72 17 132/75 91 06/09/20 23:45 75 19 131/67 95 06/09/20 23:30 74 17 127/69 95 06/09/20 23:15 79 17 132/76 94 06/09/20 23:00 75 21 130/69 94 06/09/20 22:45 76 20 141/72 H 95 06/09/20 22:30 76 16 118/70 94 06/09/20 22:15 81 20 146/76 H 95 06/09/20 22:00 79 14 138/72 06/09/20 21:45 78 13 127/75 06/09/20 21:30 85 17 139/82 06/09/20 21:26 80 15 94 06/09/20 21:15 80 18 125/83 94 06/09/20 19:29 99.0 F 86 20 146/78 H 94 Recovery Score Activity: Moves 4 extremities Respiration: Deep Breath/Cough Circulation: +/-20% PreAnes Value Consciousness: Fully Awake Oxygen Saturation: > 92% On Room Air Post Anesthesia Score: 10 Discharge Sedation Level of Care: Fast Track Phase II Post Sedation Plan On clinical assessment, the patient appears to have tolerated the sedation without complications. Patient is recovering as anticipated. Patient will continue to be monitored by nursing and may be discharged when sedation discharge criteria are met per below protocol. Upon Completions of procedure up to 15 minutes continue every 5 minute vital signs and the P.A.R. score; then discharge to a Phase I or Fast Track to Phase II per the following guidelines: * Discharge Patient to appropriate Phase II area if PAR is 8 or greater or return to pre- procedure baseline. The post - procedure orders will be as directed. * If PAR score is less than 8 or not return to pre-procedure baseline then patient will follow Phase I monitoring till PAR is reached for Phase II. The Phase I may be done in procedure room or may call to secure a Phase I area. * If naloxone or flumazenil are used for reversal, hold in Phase I for continued monitoring from when last reversal dose was given for a minimum of 60 minutes or longer pending the nurse and/or physician discretion of patient condition before discharge to Phase II. Please call the Sedation Physician to re-evaluate and complete post-note for discharge to Phase II area. Do NOT discharge from procedure sedation or Phase 1 until post- sedation evaluation note is complete by procedure /sedation MD Sedation Discharge Instructions to be given to the patient at discharge to home.
--- NOTE | 2020-06-10 14:08 | Cardiac Catheterization ---
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 Cardiac Status Clinical evaluation leading to the procedure CAD Presenation: Non STEMI Anginal Classification: CCS IV Heart Failure: No Cardiogenic Shock within 24 Hours: No Cardiac Arrest within 24 Hours: No Imaging Studies Past 6 Months: Yes Stress Studies Past 6 Months: No Diagnostic Physicians Name: Daniel Guerrero MD Status: Elective Closure Device Percutaneous Entry Location: Radial Closure Device: Radial Band Recommendations: Medical Therapy and/or Counseling Intraprocedure Events Significant Disection: No Perforation: No Cardiac Cath Procedure Full Procedure Date June 10, 2020 Pre-Procedure Diagnosis Pre-Procedure Diagnosis: Non STEMI and Cardiothoracic Symptom (chest pain) AUC Score AUC Score: 7 Post-Procedure Diagnosis Post-Procedure Diagnosis: Mild CAD and Normal Intracardiac Pressures Procedure(s) Performed Procedure(s) Performed: Coronary Angiography and Left Heart Cath Blood Or Blood Bank Technician Daniel Guerrero MD Cane Furniture Maker(s) Tita Estimated Blood Loss Estimated Blood Loss: 5 Medication(s) Medication(s): Fentanyl, Heparin, Lidocaine 1%, Nicardipine, Nitroglycerin and Versed Summary of Findings Indication: Atypical chest pain, minimally elevated troponin, suspected ACS Access: 6 Fr slender right radial artery Catheters: [place] Findings: LM -large caliber, no significant disease LAD -normal caliber, 30% mid segment disease, distal vessel without disease and wraps around apex. Gives off 3 medium caliber diagonals. D1 30% ostial. Circumflex -large caliber, dominant, no significant disease. Left PDA without disease RCA -small, nondominant, no significant disease LVEDP -13 Arterial Closure: TR band Summary: 1. Mild nonobstructive coronary artery disease -30% mid LAD, 30% ostial D1 2. Normal intracardiac filling pressure Recommendations: No high risk coronary artery disease to explain constant chest pain. Further evaluation/treatment of noncardiac chest pain causes. Continued ASCVD risk factor modification Hemodynamics Rest Ao:: 128/71/118 Final Ao: 129/65/94 LV: 122/13 Recommendations Recommendations: Medical Therapy and/or Counseling Specimens Specimens: None Radiation Exposure (mGy) 1057 Contrast (mls) 45 Fluids (cc crystalloids) Fluids (cc crystalloids): -- Drains Drains: None Anesthesia Moderate Procedural Complication(s) None Disposition PCU I attest to the content of the Intraoperative Record and any orders documented therein. Any exceptions are noted below. [facility] Card Cath Procedure Codes Cardiac Catheterization Procedure 1: Cardiovascular Cath Procedures: 72105 Coronaries and LHC (+/-LV) Moderate Sedation Procedure 1: Sedation/Anesthesia: 96888 Mod Sedation by the same physician;Init15 Min Child Age 5 & Up PG Care Time/CCT Total # of Minutes Spent Total Time Spent with Patient: Total time spent is greater than 50% in coordination of care (as documented) at patient's floor/unit and/or counseling patient:
[2020-06-10] MEDS ORDERED: SODIUM CHLORIDE 0.9% 1000ML 1,000 ML IV SCH (14:15)
--- NOTE | 2020-06-10 15:59 | Electrocardiogram Report ---
Test Reason : Blood Pressure : / mmHG Vent. Rate : 082 BPM Atrial Rate : 082 BPM P-R Int : 176 ms QRS Dur : 082 ms QT Int : 382 ms P-R-T Axes : 028 001 018 degrees QTc Int : 446 ms Normal sinus rhythm Inferior infarct (cited on or before 10-AUG-2019) Abnormal ECG When compared with ECG of 03-JUN-2020 14:54, Criteria for Anterior infarct are no longer Present Confirmed by Jose J Zuñiga ([id number]) on 06/10/2020 3:58:33 PM Referred By: REFERRED SELF Confirmed By:Jose J Zuñiga
[2020-06-10] MEDS ORDERED: methylPREDNISolone 20 MG in SYRINGE 0 ML IV ONE (16:00)
--- NOTE | 2020-06-10 16:39 | Discharge Summary ---
Date of Service June 10, 2020 Admission HPI Per Admitting Provider The patient is 59-year-old male with a past medical history including hypertension, hyperlipidemia, diabetes mellitus, COPD, GERD, and daytime excessive sleepiness and fatigue. He was recently started on Prilosec in the outpatient setting for presumptive GERD, however, his symptoms were that significant that he presented to the ED for assessment tonight. In the emergency department, work-up included the following: Troponin 0 0.06, glucose 142, normal chest x-ray, EKG with normal sinus rhythm at 80 and old inferior wall NC. In the emergency department, the patient received aspirin 324 mg, Zofran 4 mg IV and fentanyl 50 mcg IV. Discharge Data Allergies Allergy/AdvReac Type Severity Reaction Status Date / Time codeine Allergy Intermediate Nausea/Vomi Verified 06/08/20 14:27 ting Penicillins Allergy Intermediate Swelling Verified 06/08/20 14:27 Consultations 06/09/20 22:01 ED Decision to Admit Stat 06/10/20 00:29 Consult Cardiology Routine Consult Case Management - Discharge Planning Routine Procedures Performed Operation Date: 06/10/20 13:00 Actual Procedures p Cath, Left with Cors and Vent - Pierce Guerrero MD s Cineradiography w/Routine Exam - Pierce Guerrero MD Ordered Studies 06/10/20 10:54 CL Cath Imgs for PACS use only Routine CL Cath Imgs for PACS use only Routine Hospital Course (1) Non-STEMI (non-ST elevated myocardial infarction): Non-STEMI/elevated troponin I/CAD/hypertension- The patient will be admitted to telemetry for serial cardiac enzymes, serial EKG's, cardiac rhythm monitoring and a 2-D echocardiogram with Dopplers. 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 Placed on Accu-Cheks before meals and at bedtime with NovoLog coverage per scale (6) Hyperlipidemia LDL goal <70: Increase atorvastatin from 10 to 40 mg at bedtime. Check a fasting lipid panel (7) Excessive daytime sleepiness: Hold modafinil (8) GERD (gastroesophageal reflux disease): Continue lansoprazole 30 mg daily or pantoprazole 40 mg daily (9) COPD (chronic obstructive pulmonary disease): Continue fluticasone propionate/salmeterol 1 elation every 12 hours. Discharge Plan Discharge Items Patient Disposition: Home - Self-Care Reason For Visit: Chest pain Discharge Diagnosis: Mild to moderate coronary disease, non-obstructive Condition on Discharge: Good Goals: medical management of coronary disease Activity: Resume your previous activity Driving/Machine Use: Resume 1 day after discharge Weightbearing: Full weightbearing Non-emergency contact: Primary Care Provider Call non-emergency contact if: you have any medication questions Follow-up/Referrals: Juan Mei III, CRNP [Primary Care Provider] - 06/12/20 11:00 am (Please follow up with CHARITO Bangura on Monday06/12/2020 at 11:00 am. Please arrive to the office 15 minutes early for your appointment. If you are unable to keep this appointment, please call the office to reschedule at [phone].) Diet: Carb Consistent or DM2 and Heart Healthy Addtl Attending Provider Instructions: Medications: - ASPIRIN: 81mg daily - LIPITOR: dose increased to 40mg daily to help stabilize plaques Chest pain, minimal rise in troponin left heart catheterization with mild to moderate disease, 30% in LAD vessel need to manage medically with aspirin, Lipitor, tight control of diabetes follow heart healthy diet exercise 4 times a week for 30 minutes at a time will treat possible inflammatory source with Medrol dose pack and ibuprofen start taking the Medrol tomorrow AM, I will give you IV steroid prior to discharge today take Motrin 600mg three times a day with meals for 5 days take Tylenol 650mg every 6 hours for 5 days Pending Studies at Discharge: No Stand-Alone Forms: My [facility] [email or web address], Smoking Cessation Medications and DC Order Prescriptions: New atorvastatin 40 mg Tablet 40 mg PO HS 30 Days Qty: 30 RF: 3 aspirin [Aspirin Low Dose] 81 mg tablet,delayed release (DR/EC) 81 mg PO DAILY Qty: 30 RF: 0 methylprednisolone 4 mg tablets,dose pack 4 mg PO UD Qty: 21 RF: 0 Continued lansoprazole 30 mg capsule,delayed release(DR/EC) 30 mg PO DAILY Qty: 30 RF: 2 potassium chloride [Klor-Con M20] 20 mEq tablet,ER particles/crystals 20 meq PO DAILY RF: 0 modafinil 200 mg tablet 200 mg PO BID RF: 0 gabapentin 100 mg capsule 100 mg PO HS RF: 0 lisinopril-hydrochlorothiazide 10-12.5 mg tablet 1 tab PO DAILY RF: 0 metformin 500 mg tablet extended release 24 hr 1,000 mg PO BID RF: 0 Victoza 3-Santana 0.6 mg/0.1 mL (18 mg/3 mL) pen injector 1.8 mg SUBCUT DAILY RF: 0 fluticasone propion-salmeterol 113-14 mcg/actuation aerosol powdr breath activated 1 puff INHALATION Q12H RF: 0 Steglatro 15 mg tablet 15 mg PO QAM RF: 0 Discontinued atorvastatin 10 mg tablet 10 mg PO HS RF: 0 Discharge Orders: Discharge Order (Routine); Ordered 06/10/20 Ordered By: Roman Fajardo/Other Patient Handouts: Managing Type 2 Diabetes, Managing Diabetes: The A1C Test, Eating Heart-Healthy Foods Admission Data Admit Date/Time: 06/09/20 23:20 Attending Provider: Roman Christian Admit Provider: Lalit Simpson Primary Care Provider: Juan Mei III Other Providers: Lalit Simpson ; Pierce Son. Other Interventions: Discharge Summary Assessment (RN) Last Done: 06/10/20 16:01 Coding Diagnoses Non-STEMI (non-ST elevated myocardial infarction) I21.4 CAD (coronary artery disease), [place] coronary artery I25.10 Hypertension I10 Elevated troponin I level R77.8 Diabetes mellitus E11.9 Hyperlipidemia LDL goal <70 E78.5 Excessive daytime sleepiness G47.19 GERD (gastroesophageal reflux disease) K21.9 COPD (chronic obstructive pulmonary disease) J44.9
[2020-06-10] MEDS ORDERED: GABAPENTIN 100 MG CAP PO SCH (21:00)
[2020-06-10] MEDS ORDERED: ATORVASTATIN 40 MG TAB PO SCH (21:00)
--- NOTE | 2020-06-11 08:47 | Electrocardiogram Report ---
Test Reason : Blood Pressure : / mmHG Vent. Rate : 074 BPM Atrial Rate : 074 BPM P-R Int : 178 ms QRS Dur : 082 ms QT Int : 382 ms P-R-T Axes : 094 -22 029 degrees QTc Int : 424 ms Poor data quality, interpretation may be adversely affected Normal sinus rhythm Inferior infarct (cited on or before 10-AUG-2019) Possible Anterior infarct , age undetermined Abnormal ECG When compared with ECG of 09-JUN-2020 19:34, (unconfirmed) Nonspecific T wave abnormality, worse in Inferior leads Confirmed by Jose J Zuñiga ([id number]) on 06/11/2020 8:46:46 AM Referred By: REFERRED SELF Confirmed By:Jose J Zuñiga
--- NOTE | 2020-06-11 08:49 | Electrocardiogram Report ---
Test Reason : Blood Pressure : / mmHG Vent. Rate : 071 BPM Atrial Rate : 071 BPM P-R Int : 170 ms QRS Dur : 090 ms QT Int : 422 ms P-R-T Axes : 040 000 015 degrees QTc Int : 458 ms Normal sinus rhythm Inferior infarct (cited on or before 10-AUG-2019) Abnormal ECG When compared with ECG of 09-JUN-2020 23:11, (unconfirmed) No significant change was found Confirmed by Jose J Zuñiga ([id number]) on 06/11/2020 8:49:22 AM Referred By: REFERRED SELF Confirmed By:Joes J Zuñiga
--- NOTE | 2020-06-11 08:55 | Electrocardiogram Report ---
Test Reason : Blood Pressure : / mmHG Vent. Rate : 068 BPM Atrial Rate : 068 BPM P-R Int : 196 ms QRS Dur : 082 ms QT Int : 400 ms P-R-T Axes : 058 011 046 degrees QTc Int : 425 ms Normal sinus rhythm Possible Anterior infarct , age undetermined , may be misplaced V2 Abnormal ECG When compared with ECG of 10-JUN-2020 05:06, (unconfirmed) Borderline criteria for Anterior infarct are now Present Criteria for Inferior infarct are no longer Present Confirmed by Jose J Zuñiga ([id number]) on 06/11/2020 8:55:17 AM Referred By: REFERRED SELF Confirmed By:Jose J Zuñiga
== END 2020-06-10 19:14 | disposition home or self-care (01) ==
LOC: ED 19:19 → INTOOBSV 23:20 → SUATTDRO 23:20 → 2S 23:20